=== PATIENT | female | born 1940 | race Caucasian/White ===

== ENCOUNTER 2019-07-20 17:44 | Emergency (ER) | payer OTHER, MEDICAID ==
[~2019-07-20] VITALS: Ht 152.4 cm; Wt 57.2 kg
[2019-07-20 18:05] VITALS: BP 168/90
[2019-07-20] MEDS ORDERED: ACETAMINOPHEN 325 MG TAB PO ONE (19:45)
--- NOTE | 2019-07-20 20:17 | NUR ---
PT AMBULATED TO BATHROOM
--- NOTE | 2019-07-20 20:19 | NUR ---
BIB [facility] S/P FALL AT [facility] IN [facility], FALL WAS UNWITNESSED, STAFF DOES NOT BELIEVE THERE WAS LOC. NO OBVIOUS DEFORMITY NOTED. NO MASSES FELT UPON PALPITATION IN SKULL/BACK/ABDOMEN. PT ABLE TO AMBULATE TO BATHROOM. CMS+ BILATERAL UPPER/LOWER EXT. AAOX2. CAP REFILL <3. SKIN INTACT. BRUISE NOTED ON LEFT HAND, SON BELIEVES IT IS AN OLD BRUISE. SON PATIENTS SIDE. PMH: PARUL DENT
--- NOTE | 2019-07-20 21:15 | NUR ---
SYD WRAP #2 APPLIED TO THE LEFT HAND. PT STATES THE WRAPPING IS NOT TOO TIGHT PER TRANSLATION BY PATIENT'S SON. PATIENT PMSCs INTACT BEFORE AND AFTER APPLICATION.
[2019-07-20 21:22] VITALS: BP 154/82
--- NOTE | 2019-07-20 21:25 | NUR ---
Patient discharged with v/s stable. Pt no longer c/o pain. Written and verbal after care instructions given and explained. Patient alert, oriented. Son provided with DC instructions and he verbalized understanding of instructions. Wheel chair assisted to vehicle. All questions addressed prior to discharge. ID band removed. Patient advised to follow up with PMD and when to return to ER. Rx of Acetaminophen given. Patient educated on indication of medication including possible reaction and side effects. Opportunity to ask questions provided and answered.
== END 2019-07-20 21:22 | disposition home or self-care (01) ==
LOC: MED 17:44
DX: S60.222A Contusion of left hand, initial encounter (principal); F03.90 Unspecified dementia, unspecified severity, without behavioral disturbance, psychotic disturbance, mood disturbance, and anxiety; Z86.73 Personal history of transient ischemic attack (TIA), and cerebral infarction without residual deficits; W01.0XXA Fall on same level from slipping, tripping and stumbling without subsequent striking against object, initial encounter; Y93.89 Activity, other specified; Y92.89 Other specified places as the place of occurrence of the external cause; Y99.8 Other external cause status
CPT/HCPCS: 73130; 93005; 99284